=== PATIENT | female | born 1970 | race Caucasian/White ===

== ENCOUNTER 2017-06-21 09:52 | Emergency (ER) | payer BC, OTHER ==
[2017-06-21 10:12] VITALS: BP 109/41
--- NOTE | 2017-06-21 10:38 | UC ---
Hip/Pelvis Pain - HPI Summary HPI Summary: Pt presents with right hip pain for the last 4 days. She tells me that she was at the gym about 6 days ago and was doing her usual workout when she felt a pain start in her right anterior hip. This pain has been getting worse since that time. She went to the gym again 4 days ago, but wasn't able to do much due to pain. No gym since that time. She has been taking ibuprofen, which does help the pain - but the pain returned. Denies numbess/tingling, back pain, dysuria, loss of bowel/bladder function - History Of Current Complaint Chief Complaint: UCLowerExtremity Stated Complaint: HIP INJURY Time Seen by Provider: 06/21/17 10:38 Hx Last Menstrual Period: 1 week Onset/Duration: Gradual Onset Severity Initially: Moderate Severity Currently: Moderate Pain Intensity: 7 Pain Scale Used: 0-10 Numeric Character Of Pain: Aching, Stiffness Aggravating Factor(s): Movement, Weight Bearing Alleviating Factor(s): Rest, Position - Allergies/Home Medications Allergies/Adverse Reactions: Allergies Allergy/AdvReac Type Severity Reaction Status Date / Time No Known Allergies Allergy Verified 06/21/17 10:12 Home Medications: Home Medications Naproxen Sodium [Aleve] 1 cap PO DAILY PRN 06/21/17 [History Confirmed 06/21/17] PMH/Surg Hx/FS Hx/Imm Hx Previously Healthy: Yes Psychological History: Depression - Surgical History Surgical History: None - Family History Known Family History: Positive: Other - DJD - Social History Occupation: Employed Full-time Lives: With Family Alcohol Use: Occasionally Alcohol Amount: 1-2 per week Substance Use Type: None Smoking Status (MU): Former Smoker Type: Cigarettes Amount Used/How Often: 2-3 per day Length of Time of Smoking/Using Tobacco: 20 years Have You Smoked in the Last Year: Yes - Immunization History Most Recent Tetanus Shot: UTD Review of Systems Constitutional: Negative Skin: Negative Respiratory: Negative Cardiovascular: Negative Gastrointestinal: Negative Genitourinary: Negative Neurovascular: Negative Musculoskeletal: Decreased ROM - Right hip, Other: - Pain right hip Neurological: Negative Psychological: Negative All Other Systems Reviewed And Are Negative: Yes Physical Exam Triage Information Reviewed: Yes Appearance: Well-Appearing, No Pain Distress, Well-Nourished Vital Signs: Initial Vital Signs Temp 98.9 F 06/21/17 10:07 Pulse 66 06/21/17 10:07 Resp 20 06/21/17 10:07 BP 109/41 06/21/17 10:07 Pulse Ox 100 06/21/17 10:07 Vital Signs Reviewed: Yes Neck: Positive: Supple, Nontender Respiratory: Positive: Lungs clear, Normal breath sounds, No respiratory distress, No accessory muscle use Cardiovascular: Positive: RRR, No Murmur, Pulses Normal Abdomen Description: Positive: Nontender, No Organomegaly, Soft, Other: - No inguinal or femoral hernia appreciated.. Negative: CVA Tenderness (R), CVA Tenderness (L), Distended, Guarding Bowel Sounds: Positive: Present Musculoskeletal: Positive: No Edema, Strength Limited @ - Right hip 3/5, ROM Limited @ - Right hip due to pain., Other: - TTP over right hip adductors. HARINI positive for groin pain in this area. Neurological: Positive: Alert, Muscle Tone Normal, Other: - Sensations intact b/ l LEs L3-S1. Psychological: Positive: Age Appropriate Behavior Skin: Negative: rashes Hip Injury Course/Dx - Course Course Of Treatment: XR: IMPRESSION: Normal radiograph of the right hip. Toradol IM in clinic today. Rx for flexeril at bedtime. Suspect muscle strain - number for ortho provided if her symptoms persist/worsen. - Differential Dx/Diagnosis Provider Diagnoses: Right hip strain Discharge - Discharge Plan Condition: Stable Disposition: HOME Prescriptions: Cyclobenzaprine TAB* [Flexeril 10 MG TAB*] 10 mg PO BEDTIME PRN #12 tab PRN Reason: Pain Patient Education Materials: Hip Pain (ED) Referrals: Dafne Atwood MD [Primary Care Provider] - Melvin Rose [Medical Doctor] - If Needed Additional Instructions: If you develop a fever, shortness of breath, chest pain, new or worsening symptoms - please call your PCP or go to the ED. 1) Continue with ibuprofen as needed for pain 2) If you symptoms are worsening or still persisting by the middle of next week - please call Orthopedics at the number below to schedule a follow up appointment.
[2017-06-21] MEDS ORDERED: Ketorolac INJ* 30 MG/ML 1 ML VIAL IM ONE (10:47)
--- NOTE | 2017-06-21 11:26 | RAD ---
INDICATION: 3 days of right hip pain after exercise injury COMPARISON: None TECHNIQUE: 3 views of the right hip were obtained. FINDINGS: The visualized bones of the right hip are well-corticated and properly aligned. The joint spaces are normal. There is no radiographic evidence of acute fracture or dislocation. IMPRESSION: Normal radiograph of the right hip. If the patient's symptoms persist follow-up imaging is recommended.
== END 2017-06-21 11:56 | disposition home or self-care (01) ==
LOC: UCEAST 09:52
DX: S76.011A Strain of muscle, fascia and tendon of right hip, initial encounter (principal); X58.XXXA Exposure to other specified factors, initial encounter; Y93.B9 Activity, other involving muscle strengthening exercises; Y92.39 Other specified sports and athletic area as the place of occurrence of the external cause; F32.9 Major depressive disorder, single episode, unspecified; Z87.891 Personal history of nicotine dependence
CPT/HCPCS: 96372; 99212; G0463; J1885